=== PATIENT | female | born 1970 | race Caucasian/White ===

== ENCOUNTER 2024-01-19 08:33 | Emergency (ER) | payer SELFPAY ==
[~2024-01-19] VITALS: Ht 165.1 cm; Wt 68.5 kg
[2024-01-19 08:35] VITALS: BP 111/48; PULSE 68; RESP 16; TEMP 98.2; O2SAT 98
== END 2024-01-20 10:30 | disposition left against medical advice (07) ==
LOC: ER 09:23
DX: M25.571 Pain in right ankle and joints of right foot (principal); Z53.21 Procedure and treatment not carried out due to patient leaving prior to being seen by health care provider